=== PATIENT | male | born 1935 | race Caucasian/White ===

== ENCOUNTER 2019-04-15 04:24 | Emergency (ER) | payer MEDICARE, BC ==
[2019-04-15] MEDS ORDERED: Oxymetazoline 0.05% Nasal Spray 30 ML Bottle NAS ONE (06:12)
[2019-04-15] MEDS ORDERED: Sodium Chloride 0.9% 1,000 ML IV SCH (06:15)
[2019-04-15] MEDS ORDERED: Acetaminophen/HYDROcodone 325-5 MG Tab PO ONE (06:19)
--- NOTE | 2019-04-15 06:25 | EDM.PDOC ---
<Becky Fuentes - Last Filed: 04/15/19 06:57> ED HPI GENERAL MEDICAL PROBLEM - General Chief Complaint: ENT Problem Stated Complaint: BLOODY NOSE Time Seen by Provider: 04/15/19 04:40 Source of Information: Reports: Patient History Limitations: Reports: No Limitations - History of Present Illness INITIAL COMMENTS - FREE TEXT/NARRATIVE: pt arrived with a nose bleed from his rt nostril which started at about 2 am. he is on elequist. He is bleeding quite heavily. He has had some bleeding in the past but he has been able to stop it. He has atrial fib that he is using the elequist for. Onset: Today, Sudden Duration: Hour(s): Location: Reports: Face Associated Symptoms: Reports: No Other Symptoms, Other (pt has chronic back pain. ) - Related Data Allergies Allergy/AdvReac Type Severity Reaction Status Date / Time cephalexin [From Keflex] Allergy Rash Verified 04/15/19 04:43 lisinopril Allergy Cough Verified 04/15/19 04:43 metformin Allergy Diarrhea Verified 04/15/19 04:43 vancomycin Allergy Hives Verified 04/15/19 04:43 Home Meds: Home Meds Albuterol Sulfate [Proair Hfa] 8.5 gm IN ASDIRECTED 04/15/19 [History] Apixaban [Eliquis] 5 mg PO BID 04/15/19 [History] Aspirin [Lo-Dose Aspirin EC] 81 mg PO DAILY 04/15/19 [History] Famotidine 40 mg PO BID 04/15/19 [History] Gabapentin [Neurontin] 900 mg PO BEDTIME 04/15/19 [History] Glimepiride [Amaryl] 2 mg PO DAILY 04/15/19 [History] Losartan [Cozaar] 12.5 mg PO DAILY 04/15/19 [History] Montelukast [Singulair] 10 mg PO BEDTIME 04/15/19 [History] Nitroglycerin [Nitrostat] 0.4 mg PO ASDIRECTED 04/15/19 [History] Omeprazole 40 mg PO DAILY 04/15/19 [History] Sotalol [Betapace] 40 mg PO BID 04/15/19 [History] atorvaSTATin [Lipitor] 20 mg PO BEDTIME 04/15/19 [History] Past Medical History HEENT History: Reports: Cataract, Impaired Vision Cardiovascular History: Reports: Afib, High Cholesterol, Pacemaker, Stents, Other (See Below) Other Cardiovascular History: carotid surgery Gastrointestinal History: Reports: GERD Genitourinary History: Reports: Prostate Disorder Neurological History: Reports: CVA, Other (See Below) Other Neuro History: Brain aneurysm Endocrine/Metabolic History: Reports: Diabetes, Type II - Past Surgical History HEENT Surgical History: Reports: Tonsillectomy, Other (See Below) Other HEENT Surgeries/Procedures: rhino plasty Cardiovascular Surgical History: Reports: Coronary Artery Stent GI Surgical History: Reports: Appendectomy, Colon, Other (See Below) Other GI Surgeries/Procedures: colon resection Male Surgical History: Reports: Prostatectomy Neurological Surgical History: Reports: Laminectomy Musculoskeletal Surgical History: Reports: Other (See Below) Other Musculoskeletal Surgeries/Procedures:: lumbar stenosis Social & Family History - Tobacco Use Smoking Status *Q: Never Smoker - Recreational Drug Use Recreational Drug Use: No ED ROS ENT - Review of Systems Review Of Systems: See Below Constitutional: Reports: No Symptoms HEENT: Reports: Nosebleed, Other (pt has had a cough. ) Respiratory: Reports: Wheezing Cardiovascular: Reports: No Symptoms Endocrine: Reports: No Symptoms GI/Abdominal: Reports: No Symptoms : Reports: No Symptoms Musculoskeletal: Reports: No Symptoms ED EXAM, ENT - Physical Exam Exam: See Below Text/Narrative:: pt is havng heavy bleeding from the rt nostril. He has some cross over bleeding in the left. Exam Limited By: No Limitations General Appearance: Alert, Anxious, Moderate Distress Ears: Normal TMs Nose: Other (pt has sig bleeding from the rt nostril and he is having some crossover bleeding in the left , His bp was quite low on arrivsl. ) Mouth/Throat: Other (pt has blood going down the back of the throat. ) Head: Atraumatic Neck: Normal Inspection Respiratory/Chest: No Respiratory Distress Cardiovascular: Regular Rate, Rhythm GI/Abdominal: Soft, Non-Tender (Male) Exam: Deferred Rectal (Males) Exam: Deferred Back: Normal Inspection Neurological: Alert, Oriented Psychiatric: Anxious Course - Vital Signs Last Recorded V/S: Last Vital Signs Temp 36.4 C 04/15/19 04:41 Pulse 81 04/15/19 04:41 Resp 16 04/15/19 04:41 BP 87/48 L 04/15/19 04:41 Pulse Ox 95 04/15/19 04:41 - Orders/Labs/Meds Orders: Active Orders 24 hr Category Date Time Status Sodium Chloride 0.9% [Normal Saline] 1,000 ml Med 04/15/19 06:15 Active IV ASDIRECTED Medication Orders Sodium Chloride (Normal Saline) 1,000 mls @ 250 mls/hr IV ASDIRECTED ABIDA Last Admin: 04/15/19 06:27 Dose: 250 mls/hr Labs: Laboratory Tests 04/15/19 04/15/19 Range/Units 06:25 06:25 WBC 10.1 (4.5-11.0) K/uL RBC 4.62 (4.30-5.90) M/uL Hgb 13.8 (12.0-15.0) g/dL Hct 42.6 (40.0-54.0) % MCV 92 (80-98) fL MCH 30 (27-31) pg MCHC 32 (32-36) % Plt Count 199 (150-400) K/uL Neut % (Auto) 64 (36-66) % Lymph % (Auto) 21 L (24-44) % [place] % (Auto) 14 H (2-6) % Eos % (Auto) 1 L (2-4) % Baso % (Auto) 0 (0-1) % APTT 32.7 (27.0-36.0) sec Meds: Medications Generic Name Dose Route Start Last Admin Trade Name Freq PRN Reason Stop Dose Admin Sodium Chloride 1,000 mls @ 250 mls/hr 04/15/19 06:15 04/15/19 06:27 Normal Saline IV 250 mls/hr ASDIRECTED ABIDA Administration Discontinued Medications Generic Name Dose Route Start Last Admin Trade Name Freq PRN Reason Stop Dose Admin Hydrocodone Bitart/Acetaminophen 1 tab 04/15/19 06:19 04/15/19 06:35 [place] 325-5 Mg PO 04/15/19 06:20 1 tab ONETIME ONE Administration Oxymetazoline HCl 1 ml 04/15/19 06:12 04/15/19 06:28 Nasal Decongestant [place] ADAM 04/15/19 06:13 1 ml ONETIME ONE Administration - Re-Assessments/Exams Free Text/Narrative Re-Assessment/Exam: 06/13/19 06:39 pt had a 7.5 rapid rhino placed in the rt nostril he had a ant pack placed in the left nostril with vasoline gauze. He continued to have crossover bleeding. He had a bp of 87/60. A iv was started and ran at 250, He was given norco because of severe back pain. He was given levoquin 500mg iv and achest xray will be obtained. Departure - Departure Disposition: Home, Self-Care 01 Clinical Impression: Epistaxis - Discharge Information Instructions: Nosebleed, Oyat-no-Qher Referrals: PCP,None [Primary Care Provider] - Forms: ED Department Discharge Care Plan Goals: levoquin 500mg daily for 1 week. use the albuterol inhaler that he had at home tid, leave the packing in the left nostril for 24 hours and that can be removed at home. The rapid rhino needs to stay in place for the next 2 days. He can return to er of urgent care to have the packing removed.. hold elequist today and resume tomorrow. Hold asafor the next 2 days. <Kenton Snyder - Last Filed: 04/15/19 08:59> Course - Re-Assessments/Exams Free Text/Narrative Re-Assessment/Exam: Assumed care of patient from Dr. Fuentes at 0723 hours. He is completing an infusion of IV fluids for transient hypotension. 04/15/19 07:58 04/15/19 08:36 Patient was resting comfortably at recheck and has had no further bleeding around the Rapid Rhino packing. He was asymptomatic on ambulation with nursing staff. Nasal packing should remain in until Friday morning, 22 April. He should not dab at overpull on the packing. If bleeding resumes, he should return to the emergency department. 04/15/19 08:58 Also instructed to use inhalers as prescribed. Departure - Departure Time of Disposition: 08:56 Condition: Good - Discharge Information *PRESCRIPTION DRUG MONITORING PROGRAM REVIEWED*: Not Applicable *COPY OF PRESCRIPTION DRUG MONITORING REPORT IN PATIENT MYRA: Not Applicable
== END 2019-04-15 09:08 | disposition home or self-care (01) ==
LOC: JP.ED 04:24
DX: R04.0 Epistaxis (principal); I48.91 Unspecified atrial fibrillation; E78.00 Pure hypercholesterolemia, unspecified; K21.9 Gastro-esophageal reflux disease without esophagitis; E11.9 Type 2 diabetes mellitus without complications; Z86.73 Personal history of transient ischemic attack (TIA), and cerebral infarction without residual deficits; Z79.82 Long term (current) use of aspirin; Z79.899 Other long term (current) drug therapy; Z88.1 Allergy status to other antibiotic agents; Z88.8 Allergy status to other drugs, medicaments and biological substances
CPT/HCPCS: 30903; 36415; 85025; 85730; 96360; 96361; 99283; A9270; J7030

== ENCOUNTER 2019-04-17 11:27 | Emergency (ER) | payer MEDICARE, BC ==
--- NOTE | 2019-04-17 12:27 | EDM.PDOC ---
ED HPI GENERAL MEDICAL PROBLEM - General Chief Complaint: ENT Problem Stated Complaint: REMOVE NOSE PLUG WAS HERE ON FRI NIGHT Time Seen by Provider: 04/17/19 12:10 Source of Information: Reports: Patient, Family - History of Present Illness INITIAL COMMENTS - FREE TEXT/NARRATIVE: Nicole thompson 83-year-old gentleman is here for follow-up of a nosebleed. Patient had a right posterior nose bleed that resulted in a right-sided crossover bleeding, posterior epistaxis Rhino Rocket placed in his right nares and had cross over left nares bleed therefore, anterior Rhino Rocket placed in his left nares. Patient removed the packing from the left nares yesterday. The bleeding has been stabilized. Patient has been on Levaquin for prevention of infection due to foreign body. He's been doing fairly well. Patient had some wheezing during evaluation few days ago due to sinus infection which settled into his chest. His wheezing is much improved with the albuterol, now only using it as needed. He has concerned regarding the constipation he has been having over the course of the last week. Patient has tried MiraLAX without improvement. Patient is drinking plenty of fluids as fluid is important with Levaquin dosing. - Related Data Allergies Allergy/AdvReac Type Severity Reaction Status Date / Time cephalexin [From Keflex] Allergy Rash Verified 04/17/19 11:52 vancomycin Allergy Hives Verified 04/17/19 11:52 lisinopril AdvReac Cough Verified 04/17/19 11:52 metformin AdvReac Diarrhea Verified 04/17/19 11:52 Home Meds: Home Meds Albuterol Sulfate [Proair Hfa] 8.5 gm IN ASDIRECTED 04/15/19 [History] Apixaban [Eliquis] 5 mg PO BID 04/15/19 [History] Aspirin [Lo-Dose Aspirin EC] 81 mg PO DAILY 04/15/19 [History] Famotidine 40 mg PO BID 04/15/19 [History] Gabapentin [Neurontin] 900 mg PO BEDTIME 04/15/19 [History] Glimepiride [Amaryl] 2 mg PO DAILY 04/15/19 [History] Losartan [Cozaar] 12.5 mg PO DAILY 04/15/19 [History] Montelukast [Singulair] 10 mg PO BEDTIME 04/15/19 [History] Nitroglycerin [Nitrostat] 0.4 mg PO ASDIRECTED 04/15/19 [History] Omeprazole 40 mg PO DAILY 04/15/19 [History] Sotalol [Betapace] 40 mg PO BID 04/15/19 [History] atorvaSTATin [Lipitor] 20 mg PO BEDTIME 04/15/19 [History] Past Medical History HEENT History: Reports: Cataract, Impaired Vision Cardiovascular History: Reports: Afib, High Cholesterol, Pacemaker, Stents, Other (See Below) Other Cardiovascular History: carotid surgery Gastrointestinal History: Reports: GERD Genitourinary History: Reports: Prostate Disorder Musculoskeletal History: Reports: None Neurological History: Reports: CVA, Other (See Below) Other Neuro History: Brain aneurysm Endocrine/Metabolic History: Reports: Diabetes, Type II Hematologic History: Reports: Anticoagulation Therapy - Past Surgical History Head Surgeries/Procedures: Reports: None HEENT Surgical History: Reports: Tonsillectomy, Other (See Below) Other HEENT Surgeries/Procedures: rhino plasty Cardiovascular Surgical History: Reports: Coronary Artery Stent GI Surgical History: Reports: Appendectomy, Colon, Other (See Below) Other GI Surgeries/Procedures: colon resection Male Surgical History: Reports: Prostatectomy Endocrine Surgical History: Reports: None Neurological Surgical History: Reports: Laminectomy Musculoskeletal Surgical History: Reports: Other (See Below) Other Musculoskeletal Surgeries/Procedures:: lumbar stenosis Dermatological Surgical History: Reports: None ED ROS GENERAL - Review of Systems Review Of Systems: ROS reveals no pertinent complaints other than HPI. ED EXAM, GENERAL - Physical Exam Exam: See Below Exam Limited By: No Limitations General Appearance: Alert, WD/WN, No Apparent Distress Eye Exam: Bilateral Eye: EOMI, PERRL Ears: Normal External Exam, Hearing Grossly Normal Nose: Normal Inspection (No bleeding left nares. Rhino packing remains in right nares. ), Normal Mucosa, No Blood Throat/Mouth: Normal Inspection, Normal Lips, Normal Teeth, Normal Gums, Normal Oropharynx, Normal Voice Head: Normocephalic Neck: Normal Inspection, Supple, Non-Tender, Limited Range of Motion (at baseline ) Cardiovascular: Normal Peripheral Pulses GI/Abdominal: Normal Bowel Sounds (general discomfort noted. ), Soft, No Distention, Tender (generalized discomfort noted) Back Exam: Full Range of Motion Extremities: Normal Inspection, Normal Range of Motion, Non-Tender, Normal Capillary Refill, No Pedal Edema Neurological: Alert, Oriented, CN II-XII Intact, Normal Cognition, Normal Gait Psychiatric: Normal Affect, Normal Mood Skin Exam: Warm, Dry, Intact, Normal Color, No Rash ED GENERAL MEDICAL PROCEDURES - Additional/Other Procedure(s) Other (Free Text) Procedure(s): Rhino Rocket removal: 12cc of air removed from right posterior Rhino rocket in a slow manner to prevent disrupting stabilized clot. Rhino rocket was gentle removed in a slow manner to prevent disrupting stabilized clot. Patient had some discomfort with removal but tolerated well. Headache , dental pain and sinus pressure improving. Nares was examined without active bleeding in the nares or posterior oral pharynx. Course - Vital Signs Last Recorded V/S: Last Vital Signs Temp 36.1 C 04/17/19 11:56 Pulse 50 L 04/17/19 11:56 Resp 14 04/17/19 11:56 BP 108/53 L 04/17/19 11:56 Pulse Ox 92 L 04/17/19 11:56 Departure - Departure Time of Disposition: 12:20 Disposition: Home, Self-Care 01 Clinical Impression: Epistaxis, Constipation, Wheezing on expiration - Discharge Information Instructions: How to Use a Metered Dose Inhaler, Constipation, Adult, Nosebleed , Adult Referrals: PCP,None [Primary Care Provider] - 3 Days (Call PCP for recheck in 3-5 days if no improvement with constipation and or cough) Forms: ED Department Discharge Additional Instructions: 1. Sneeze out mouth not nose. Limit nasal manipulation. 2. IN 48 hours, use Topical Antibiotic ointment with q tip every am and pm to avoid recurrent nose bleed. 3. Magnesium Citrate bottle, 1/2 bottle now and 1/2 bottle in am if not BM occurs. 4. Continue to eat and drink as normally as possible. 5. Continue Tylenol 500-1000mg every 6-8 hours for fever and pain. 6. Avoid Aspirin and NSAIDs x 48 hours due to bleeding risk. 7. Call PCP for recheck on wheezing and constipation concerns if needed. - Problem List & Annotations (1) Epistaxis SNOMED Code(s): 563510306 Code(s): R04.0 - EPISTAXIS Status: Acute Current Visit: Yes (2) Constipation SNOMED Code(s): 28600893 Code(s): K59.00 - CONSTIPATION, UNSPECIFIED Status: Acute Current Visit: Yes (3) Wheezing on expiration SNOMED Code(s): 9515220 Code(s): R06.2 - WHEEZING Status: Acute Current Visit: Yes - Assessment/Plan Plan: 1. Sneeze out mouth not nose. Limit nasal manipulation. 2. IN 48 hours, use Topical Antibiotic ointment with q tip every am and pm to avoid recurrent nose bleed. 3. Magnesium Citrate bottle, 1/2 bottle now and 1/2 bottle in am if not BM occurs. 4. Continue to eat and drink as normally as possible. 5. Continue Tylenol 500-1000mg every 6-8 hours for fever and pain. 6. Avoid Aspirin and NSAIDs x 48 hours due to bleeding risk. 7. Call PCP for recheck on wheezing and constipation concerns if needed.
== END 2019-04-17 12:35 | disposition home or self-care (01) ==
LOC: JP.ED 11:27
DX: K59.00 Constipation, unspecified (principal); R04.0 Epistaxis; R06.2 Wheezing; K21.9 Gastro-esophageal reflux disease without esophagitis; E11.9 Type 2 diabetes mellitus without complications; I48.91 Unspecified atrial fibrillation; E78.00 Pure hypercholesterolemia, unspecified; Z79.82 Long term (current) use of aspirin; Z95.0 Presence of cardiac pacemaker; Z79.01 Long term (current) use of anticoagulants; Z79.899 Other long term (current) drug therapy; Z79.84 Long term (current) use of oral hypoglycemic drugs; Z88.1 Allergy status to other antibiotic agents; Z88.8 Allergy status to other drugs, medicaments and biological substances
CPT/HCPCS: 99282

== ENCOUNTER 2019-05-11 05:55 | Emergency (ER) | payer MEDICARE, BC ==
--- NOTE | 2019-05-11 06:34 | EDM.PDOC ---
<OfficerVernon - Last Filed: 05/11/19 08:11> ED HPI GENERAL MEDICAL PROBLEM - General Chief Complaint: ENT Problem Stated Complaint: WEAK,CONSTANT NOSE BLEED Time Seen by Provider: 05/11/19 06:15 - Related Data Allergies Allergy/AdvReac Type Severity Reaction Status Date / Time cephalexin [From Keflex] Allergy Rash Verified 05/11/19 06:00 vancomycin Allergy Hives Verified 05/11/19 06:00 lisinopril AdvReac Cough Verified 05/11/19 06:00 metformin AdvReac Diarrhea Verified 05/11/19 06:00 Home Meds: Home Meds Albuterol Sulfate [Proair Hfa] 8.5 gm IN ASDIRECTED 04/15/19 [History] Apixaban [Eliquis] 5 mg PO BID 04/15/19 [History] Aspirin [Lo-Dose Aspirin EC] 81 mg PO DAILY 04/15/19 [History] Famotidine 40 mg PO BID 04/15/19 [History] Gabapentin [Neurontin] 900 mg PO BEDTIME 04/15/19 [History] Glimepiride [Amaryl] 2 mg PO DAILY 04/15/19 [History] Losartan [Cozaar] 12.5 mg PO DAILY 04/15/19 [History] Montelukast [Singulair] 10 mg PO BEDTIME 04/15/19 [History] Nitroglycerin [Nitrostat] 0.4 mg PO ASDIRECTED 04/15/19 [History] Omeprazole 40 mg PO DAILY 04/15/19 [History] Sotalol [Betapace] 40 mg PO BID 04/15/19 [History] atorvaSTATin [Lipitor] 20 mg PO BEDTIME 04/15/19 [History] Course - Vital Signs Last Recorded V/S: Last Vital Signs Temp 97.4 F 05/11/19 05:57 Pulse 67 05/11/19 07:36 Resp 16 05/11/19 06:55 BP 168/64 H 05/11/19 08:04 Pulse Ox 100 05/11/19 07:36 - Orders/Labs/Meds Orders: Active Orders 24 hr Category Date Time Status Peripheral IV Care [RC] . DIRECTED Care 05/11/19 06:52 Active Peripheral IV Insertion Adult [OM.PC] Urgent Oth 05/11/19 06:52 Ordered Labs: Laboratory Tests 05/11/19 Range/Units 06:29 WBC 9.6 (4.5-11.0) K/uL RBC 3.50 L (4.30-5.90) M/uL Hgb 10.6 L D (12.0-15.0) g/dL Hct 33.7 L (40.0-54.0) % MCV 96 (80-98) fL MCH 30 (27-31) pg MCHC 32 (32-36) % Plt Count 189 (150-400) K/uL Neut % (Auto) 73 H (36-66) % Lymph % (Auto) 17 L (24-44) % [place] % (Auto) 9 H (2-6) % Eos % (Auto) 1 L (2-4) % Baso % (Auto) 0 (0-1) % Meds: Medications Discontinued Medications Generic Name Dose Route Start Last Admin Trade Name Freq PRN Reason Stop Dose Admin Lactated Ringer's 1,000 mls @ 999 mls/hr 05/11/19 06:52 05/11/19 07:01 Ringers, Lactated IV 05/11/19 07:52 999 mls/hr BOLUS ONE Administration Sodium Chloride 10 ml 05/11/19 06:52 05/11/19 07:01 Saline Flush FLUSH 10 ml ASDIRECTED PRN Administration Keep Vein Open Departure - Departure Time of Disposition: 08:12 Disposition: Home, Self-Care 01 Condition: Fair Clinical Impression: Epistaxis - Discharge Information Instructions: Nosebleed, [id number] Referrals: PCP,None [Primary Care Provider] - Forms: ED Department Discharge Additional Instructions: Continue regular medications, please follow-up with your primary care provider in the next 2-3 days for reevaluation and possible referral to ear nose and throat, call return to the emergency department with worsening of symptoms - Assessment/Plan Plan: Assessment Acuity = acute Site and laterality = right sided epistaxis complicated in a patient on anticoagulant therapy Etiology = unclear etiology Manifestations = lightheadedness now resolved Location of injury = Home Lab values = hemoglobin 10.6 consistent with normochromic anemia Plan He had good improvement with 1 L fluids, was able to ambulate without difficulty plan is to follow up with primary care in the next 2-3 days for reevaluation and then possible referral to ear nose and throat This note was dictated using [employer] voice recognition software please call with any questions on syntax or grammar. <Alberto Haynes - Last Filed: 05/11/19 17:23> ED HPI GENERAL MEDICAL PROBLEM - General Source of Information: Reports: Patient, Family History Limitations: Reports: No Limitations - History of Present Illness INITIAL COMMENTS - FREE TEXT/NARRATIVE: 84-year-old male who is in for his second visit with right-sided epistaxis, his last visit was 2 weeks ago. He did need nasal packing at that time. His hemoglobin was over 13. Last night his nose started bleeding again on the right side, with direct pressure he thought he had it stopped several times but he thinks it persisted on bleeding most of the night. This morning on arrival he had the right side blood and clots expelled by blowing his nose, and external pressure was again applied. It is concerning that he was mildly hypotensive and dizzy when he arrived and appeared pale. Onset: Sudden Duration: Hour(s): (7 hours) Location: Reports: Other (Right nares) Associated Symptoms: Reports: Other (Lightheaded, dizzy with standing). Denies : Headaches Past Medical History HEENT History: Reports: Cataract, Impaired Vision Cardiovascular History: Reports: Afib, High Cholesterol, Pacemaker, Stents, Other (See Below) Other Cardiovascular History: carotid surgery Gastrointestinal History: Reports: GERD Genitourinary History: Reports: Prostate Disorder Musculoskeletal History: Reports: None Neurological History: Reports: CVA, Other (See Below) Other Neuro History: Brain aneurysm Endocrine/Metabolic History: Reports: Diabetes, Type II Hematologic History: Reports: Anticoagulation Therapy - Past Surgical History Head Surgeries/Procedures: Reports: None HEENT Surgical History: Reports: Tonsillectomy, Other (See Below) Other HEENT Surgeries/Procedures: rhino plasty Cardiovascular Surgical History: Reports: Coronary Artery Stent GI Surgical History: Reports: Appendectomy, Colon, Other (See Below) Other GI Surgeries/Procedures: colon resection Male Surgical History: Reports: Prostatectomy Endocrine Surgical History: Reports: None Neurological Surgical History: Reports: Laminectomy Musculoskeletal Surgical History: Reports: Other (See Below) Other Musculoskeletal Surgeries/Procedures:: lumbar stenosis Dermatological Surgical History: Reports: None Social & Family History - Tobacco Use Smoking Status *Q: Former Smoker Used Tobacco, but Quit: Yes Month/Year Tobacco Last Used: 1980 - Caffeine Use Caffeine Use: Reports: None - Recreational Drug Use Recreational Drug Use: No ED ROS ENT - Review of Systems Review Of Systems: See Below Constitutional: Denies: Fever, Chills HEENT: Denies: Vision Change Respiratory: Denies: Shortness of Breath GI/Abdominal: Denies: Nausea, Vomiting Neurological: Denies: Headache Psychiatric: Reports: No Symptoms ED EXAM, ENT - Physical Exam Exam: See Below Exam Limited By: No Limitations General Appearance: Alert, No Apparent Distress Nose: Other (Active bleeding from the right nares, mild) Head: Atraumatic Respiratory/Chest: No Respiratory Distress Neurological: Alert, Oriented Skin: Pallor (Appears pale) Course - Orders/Labs/Meds Labs: Laboratory Tests 05/11/19 Range/Units 06:29 WBC 9.6 (4.5-11.0) K/uL RBC 3.50 L (4.30-5.90) M/uL Hgb 10.6 L D (12.0-15.0) g/dL Hct 33.7 L (40.0-54.0) % MCV 96 (80-98) fL MCH 30 (27-31) pg MCHC 32 (32-36) % Plt Count 189 (150-400) K/uL Neut % (Auto) 73 H (36-66) % Lymph % (Auto) 17 L (24-44) % [place] % (Auto) 9 H (2-6) % Eos % (Auto) 1 L (2-4) % Baso % (Auto) 0 (0-1) % Meds: Medications Discontinued Medications Generic Name Dose Route Start Last Admin Trade Name [place] PRN Reason Stop Dose Admin Lactated Ringer's 1,000 mls @ 999 mls/hr 05/11/19 06:52 05/11/19 07:01 Ringers, Lactated IV 05/11/19 07:52 999 mls/hr BOLUS ONE Administration Sodium Chloride 10 ml 05/11/19 06:52 05/11/19 07:01 Saline Flush FLUSH 10 ml ASDIRECTED PRN Administration Keep Vein Open - Re-Assessments/Exams Free Text/Narrative Re-Assessment/Exam: 05/11/19 06:33 Initially the external pressure was removed and it appeared the bleeding had stopped but within minutes it started bleeding. The right nares was again evacuated by blowing the nose and a 5.5 cm rapid Rhino was placed without complications. CBC was obtained. 05/11/19 17:21 Hgb 11.0. Patient had good hemostasis but significant pallor and hypotension so was turned over to Dr. Officer for fluids and monitoring.
[2019-05-11] MEDS ORDERED: Lactated Ringers 1,000 ML IV ONE (06:52)
[2019-05-11] MEDS ORDERED: Sodium Chloride 0.9% 10 ML Syringe FLUSH PRN (06:52)
== END 2019-05-11 08:42 | disposition home or self-care (01) ==
LOC: JP.ED 05:55
DX: R04.0 Epistaxis (principal); Z79.01 Long term (current) use of anticoagulants; I48.91 Unspecified atrial fibrillation; Z86.73 Personal history of transient ischemic attack (TIA), and cerebral infarction without residual deficits; E11.9 Type 2 diabetes mellitus without complications; Z90.49 Acquired absence of other specified parts of digestive tract; Z98.890 Other specified postprocedural states; Z95.0 Presence of cardiac pacemaker; K21.9 Gastro-esophageal reflux disease without esophagitis; Z79.82 Long term (current) use of aspirin; Z79.899 Other long term (current) drug therapy; Z88.1 Allergy status to other antibiotic agents; Z88.8 Allergy status to other drugs, medicaments and biological substances; Z87.891 Personal history of nicotine dependence
CPT/HCPCS: 30901; 30903; 36415; 85025; 96360; 99283; J7120

== ENCOUNTER 2019-05-13 12:42 | Emergency (ER) | payer MEDICARE, BC ==
--- NOTE | 2019-05-13 13:45 | EDM.PDOC ---
ED HPI GENERAL MEDICAL PROBLEM - General Chief Complaint: ENT Problem Stated Complaint: REMOVAL OF NOSE PLUG Time Seen by Provider: 05/13/19 13:35 Source of Information: Reports: Patient, Old Records History Limitations: Reports: No Limitations - History of Present Illness INITIAL COMMENTS - FREE TEXT/NARRATIVE: 84 yo male was seen here a couple days ago for a nose bleed and a Rhino Rocket was placed in his R nares. He was told the last time this happened to go to the ER for removal so this time he didn't call the clinic before returning to the ER. Has had a JASMINE since the nasal device was placed. His Eliquis has been on hold due to this problem. Onset: Sudden Onset Date: 05/11/19 Duration: Day(s):, Improving Location: Reports: Face (R nares) Quality: Reports: Ache (headache) Severity: Mild Improves with: Reports: Other (removal of his Rhino Rocket) Worsens with: Reports: None Context: Reports: Other (see HPI) Associated Symptoms: Reports: No Other Symptoms Treatments TEST AUTOMATION ARCHITECT: Reports: Other (see below) (Rhino Rocket x 2 d) - Related Data Allergies Allergy/AdvReac Type Severity Reaction Status Date / Time cephalexin [From Keflex] Allergy Rash Verified 05/11/19 06:00 vancomycin Allergy Hives Verified 05/11/19 06:00 lisinopril AdvReac Cough Verified 05/11/19 06:00 metformin AdvReac Diarrhea Verified 05/11/19 06:00 Home Meds: Home Meds Albuterol Sulfate [Proair Hfa] 8.5 gm IN ASDIRECTED 04/15/19 [History] Apixaban [Eliquis] 5 mg PO BID 04/15/19 [History] Aspirin [Lo-Dose Aspirin EC] 81 mg PO DAILY 04/15/19 [History] Famotidine 40 mg PO BID 04/15/19 [History] Gabapentin [Neurontin] 900 mg PO BEDTIME 04/15/19 [History] Glimepiride [Amaryl] 2 mg PO DAILY 04/15/19 [History] Losartan [Cozaar] 12.5 mg PO DAILY 04/15/19 [History] Montelukast [Singulair] 10 mg PO BEDTIME 04/15/19 [History] Nitroglycerin [Nitrostat] 0.4 mg PO ASDIRECTED 04/15/19 [History] Omeprazole 40 mg PO DAILY 04/15/19 [History] Sotalol [Betapace] 40 mg PO BID 04/15/19 [History] atorvaSTATin [Lipitor] 20 mg PO BEDTIME 04/15/19 [History] Past Medical History HEENT History: Reports: Cataract, Impaired Vision Cardiovascular History: Reports: Afib, High Cholesterol, Pacemaker, Stents, Other (See Below) Other Cardiovascular History: carotid surgery Gastrointestinal History: Reports: GERD Genitourinary History: Reports: Prostate Disorder Musculoskeletal History: Reports: None Neurological History: Reports: CVA, Other (See Below) Other Neuro History: Brain aneurysm Endocrine/Metabolic History: Reports: Diabetes, Type II Hematologic History: Reports: Anticoagulation Therapy - Past Surgical History Head Surgeries/Procedures: Reports: None HEENT Surgical History: Reports: Tonsillectomy, Other (See Below) Other HEENT Surgeries/Procedures: rhino plasty Cardiovascular Surgical History: Reports: Coronary Artery Stent GI Surgical History: Reports: Appendectomy, Colon, Other (See Below) Other GI Surgeries/Procedures: colon resection Male Surgical History: Reports: Prostatectomy Endocrine Surgical History: Reports: None Neurological Surgical History: Reports: Laminectomy Musculoskeletal Surgical History: Reports: Other (See Below) Other Musculoskeletal Surgeries/Procedures:: lumbar stenosis Dermatological Surgical History: Reports: None Social & Family History - Caffeine Use Caffeine Use: Reports: None ED ROS ENT - Review of Systems Review Of Systems: See Below Constitutional: Reports: No Symptoms HEENT: Reports: Nosebleed Cardiovascular: Reports: No Symptoms Skin: Reports: No Symptoms Neurological: Reports: Headache ED EXAM, ENT - Physical Exam Exam: See Below Exam Limited By: No Limitations General Appearance: Alert, WD/WN, No Apparent Distress Eye Exam: Bilateral Eye: PERRL Ears: Normal External Exam, Normal Canal, Hearing Grossly Normal Nose: Normal Inspection, Normal Mucousa, No Blood Mouth/Throat: Normal Inspection, Normal Lips, Normal Oropharynx Head: Atraumatic, Normocephalic Neck: Normal Inspection Neurological: Alert, Oriented, CN II-XII Intact, Normal Cognition, No Motor/ Sensory Deficits Psychiatric: Normal Affect, Normal Mood Skin: Warm, Dry, Intact, Normal Color, No Rash Course - Vital Signs Text/Narrative:: Rhino Rocket removed without incident. Last Recorded V/S: Last Vital Signs Temp 37.1 C 05/13/19 13:35 Pulse 64 05/13/19 13:35 Resp 20 05/13/19 13:35 BP 98/39 L 05/13/19 13:35 Pulse Ox 91 L 05/13/19 13:35 Departure - Departure Time of Disposition: 13:55 Disposition: Home, Self-Care 01 Condition: Good Clinical Impression: Encounter for removal of nasal pack - Discharge Information *PRESCRIPTION DRUG MONITORING PROGRAM REVIEWED*: No *COPY OF PRESCRIPTION DRUG MONITORING REPORT IN PATIENT MYRA: No Referrals: PCP,None [Primary Care Provider] - Additional Instructions: Avoid heavy lifting or bending at the waist so your nose is lower than your heart. Resume your Eliquis tomorrow. Recheck as needed.
== END 2019-05-13 14:08 | disposition home or self-care (01) ==
LOC: JP.ED 12:42
DX: Z48.00 Encounter for change or removal of nonsurgical wound dressing (principal); I48.91 Unspecified atrial fibrillation; Z86.73 Personal history of transient ischemic attack (TIA), and cerebral infarction without residual deficits; E11.9 Type 2 diabetes mellitus without complications; K21.9 Gastro-esophageal reflux disease without esophagitis; Z88.8 Allergy status to other drugs, medicaments and biological substances; Z79.82 Long term (current) use of aspirin; Z79.899 Other long term (current) drug therapy; Z98.890 Other specified postprocedural states; Z90.49 Acquired absence of other specified parts of digestive tract; Z88.1 Allergy status to other antibiotic agents
CPT/HCPCS: 99281; 99282